=== PATIENT | male | born 1950 | race Caucasian/White ===

== ENCOUNTER 2018-11-27 11:54 | Day surgery (SDC) | payer MEDICARE, OTHER ==
[~2018-11-27 11:54] MED LIST: LACTATED RINGERS 1000 ML IV PRN; LIDOCAINE 0.5% INJ-PF (5 MG/ML) 50 ML SDV SUBCUT PRN
[2018-11-27] MEDS ORDERED: PROPOFOL INJ 200 MG/20 ML VIAL IV ONE (14:51)
--- NOTE | 2018-11-27 15:32 | Discharge Summary ---
Discharge Summary (SDC) - Discharge Final Diagnosis: normal screening colonoscopy. h/o colon polyps. Date of Surgery: 11/27/18 Discharge Date: 11/27/18 Condition: Stable Treatment or Instructions: Discharge home. Diet as tolerated. Activity: Nonstrenuous. Follow-up with me as needed. Needs repeat colonoscopy in 5 years due to a personal history of colon polyps. Referrals: DARIEL LOW MD [Primary Care Provider] - Discharge Diet: As Tolerated Respiratory Treatments at Home: Deep Breathing/Coughing, Incentive Spirometer Discharge Activity: Activity As Tolerated Home Care Assistance: None Needed Report the Following to Your Physician Immediately: Shortness of Breath, Nausea, Vomiting, Increase in Pain, Fever over 101 Degrees, Unusual Bleeding, Redness
--- NOTE | 2018-11-27 15:35 | Operative Report ---
Nonrecallable Operative Report DATE OF SURGERY: 11/27/18 PREOPERATIVE DIAGNOSIS: History of colon polyps POSTOPERATIVE DIAGNOSIS: 1. History of colon polyps. 2. Normal screening colonoscopy. OPERATION: Colonoscopy to the cecum, normal screening. SURGEON: HARPREET LIANG ANESTHESIA: LMAC TISSUE REMOVED OR ALTERED: None COMPLICATIONS: None apparent ESTIMATED BLOOD LOSS: None PROCEDURE: Procedure in detail: After informed consent was obtained, the patient was brought to the operating room and laid in the left lateral decubitus position. The endoscope was passed up the rectum, sigmoid colon, descending colon, across the transverse colon, down the ascending colon, and into the cecum. The ileocecal valve and appendiceal orifice were identified. The scope was withdrawn, circumferentially noting the mucosa. The prep was very good. The scope was withdrawn past the ascending colon, down the transverse colon, descending colon, sigmoid colon, and into the rectum. In the rectum, a retroflexion maneuver was performed noting small, nonbleeding internal hemorrhoids. The scope was straightened, air was suctioned from the rectum, the scope was removed, and the procedure was concluded. Please note that there were no masses, lesions, polyps, diverticula, areas of ulceration, or other abnormalities noted. All sponge, instrument, needle counts were correct x2. Condition: Stable.
[2018-11-27 17:38] VITALS: BP 146/84
== END 2018-11-27 17:05 | disposition home or self-care (01) ==
LOC: OROUT 11:54
PROVIDERS: ATTEND Surgery
DX: Z12.11 Encounter for screening for malignant neoplasm of colon (principal); Z86.010 Personal history of colon polyps; J43.9 Emphysema, unspecified; I10 Essential (primary) hypertension; Z79.899 Other long term (current) drug therapy; I25.10 Atherosclerotic heart disease of native coronary artery without angina pectoris; F43.10 Post-traumatic stress disorder, unspecified
CPT/HCPCS: 36415; 84132; G0105; J2704; 45378; 812